=== PATIENT | male | born 1940 | race Caucasian/White ===

== ENCOUNTER 2018-01-18 07:07 | Outpatient (CLI) | payer OTHER | END 2018-01-18 07:12 | disposition home or self-care (01) | LOC: RAD 07:07 | DX: M12.812 Other specific arthropathies, not elsewhere classified, left shoulder (principal); M12.811 Other specific arthropathies, not elsewhere classified, right shoulder; M19.90 Unspecified osteoarthritis, unspecified site ==

== ENCOUNTER 2018-01-18 07:15 | Outpatient (CLI) | payer OTHER | END 2018-01-18 07:16 | disposition home or self-care (01) | LOC: SONOGRAMA 07:15 | DX: M12.812 Other specific arthropathies, not elsewhere classified, left shoulder (principal); M19.012 Primary osteoarthritis, left shoulder ==

== ENCOUNTER 2018-03-11 10:47 | Outpatient (CLI) | payer OTHER | END 2018-03-11 10:54 | disposition home or self-care (01) | LOC: SONOGRAMA 10:47 → MAMO-SONO 11:15 | DX: M75.101 Unspecified rotator cuff tear or rupture of right shoulder, not specified as traumatic (principal) ==

== ENCOUNTER 2018-11-16 07:49 | Outpatient (CLI) | payer OTHER | END 2018-11-16 07:55 | disposition home or self-care (01) | LOC: RAD 07:49 | DX: R07.1 Chest pain on breathing (principal) ==

== ENCOUNTER 2018-11-16 08:12 | Inpatient (IN) | payer OTHER ==
[~2018-11-16] VITALS: Ht 160 cm; Wt 68.0 kg
[2018-11-28] MEDS ORDERED: TOPROL XL25 MG PO (17:41)
[2018-11-28] MEDS ORDERED: TAMS0.4C PO (17:42)
[2018-11-28] MEDS ORDERED: LOSARTAN POTASS50 MG PO (17:42)
[2018-11-28] MEDS ORDERED: TOPROL XL50 M1 PO (17:42)
[2018-11-28] MEDS ORDERED: SIMVASTATIN40 MG PO (17:43)
[2018-11-30] MEDS ORDERED: DOCUSATE SODIU100 MG PO (10:14)
[2018-11-30] MEDS ORDERED: GABAPENTIN800 MG PO (10:14)
[2018-11-30] MEDS ORDERED: AMOX-CLAV 875-1 EACH PO (10:15)
[2018-11-30] MEDS ORDERED: CLONAZEPAM0.5 MG PO (10:16)
[2018-11-30] MEDS ORDERED: PERCOCET 5-3251 EACH PO (10:16)
== END 2018-11-30 17:21 | disposition home or self-care (01) | DRG 454 ==
LOC: SURG 11-29 06:00 → O/R 11-29 06:00 → SURG 11-29 11:52 → SURH 11-29 14:45 → SURG 11-29 20:08
PROVIDERS: ADMIT Orthopaedic Surgery Orthopaedic Surgery of the Spine
PROC: 0RG2071 Fusion of 2 or more Cervical Vertebral Joints with Autologous Tissue Substitute, Posterior Approach, Posterior Column, Open Approach (ICD-10-PCS; 2018-11-29)
PROC: 0RT30ZZ Resection of Cervical Vertebral Disc, Open Approach (ICD-10-PCS; 2018-11-29)
PROC: 07DS3ZZ Extraction of Vertebral Bone Marrow, Percutaneous Approach (ICD-10-PCS; 2018-11-29)
PROC: 0RG20A0 Fusion of 2 or more Cervical Vertebral Joints with Interbody Fusion Device, Anterior Approach, Anterior Column, Open Approach (ICD-10-PCS; principal; 2018-11-29 20:00)
DX: M47.12 Other spondylosis with myelopathy, cervical region (principal); M50.021 Cervical disc disorder at C4-C5 level with myelopathy; I10 Essential (primary) hypertension

== ENCOUNTER 2019-01-20 09:19 | Outpatient (CLI) | payer OTHER ==
[~2019-01-20 09:19] MED LIST: AMOX-CLAV 875-1 EACH PO; CLONAZEPAM0.5 MG PO; DOCUSATE SODIU100 MG PO; GABAPENTIN800 MG PO; LOSARTAN POTASS50 MG PO; PERCOCET 5-3251 EACH PO; SIMVASTATIN40 MG PO; TAMS0.4C PO; TOPROL XL25 MG PO; TOPROL XL50 M1 PO
== END 2019-01-20 09:23 | disposition home or self-care (01) ==
LOC: RAD 09:19
DX: M50.00 Cervical disc disorder with myelopathy, unspecified cervical region (principal); Z98.1 Arthrodesis status

== ENCOUNTER 2019-05-19 08:24 | Outpatient (CLI) | payer OTHER | END 2019-05-19 08:28 | disposition home or self-care (01) | LOC: RAD 08:24 | DX: M50.00 Cervical disc disorder with myelopathy, unspecified cervical region (principal); Z98.1 Arthrodesis status ==

== ENCOUNTER → 2021-08-26 07:58 | Outpatient (CLI) | payer OTHER | END | disposition home or self-care (01) | LOC: LAB 07:58 | PROVIDERS: ATTEND Urology | DX: N30.00 Acute cystitis without hematuria (principal); R31.29 Other microscopic hematuria ==

== ENCOUNTER 2021-09-04 07:41 | Outpatient (CLI) | payer OTHER | END 2021-09-04 07:44 | disposition home or self-care (01) | LOC: EKG 07:41 → LAB 07:41 | PROVIDERS: ATTEND Urology | DX: I11.0 Hypertensive heart disease with heart failure (principal); R94.31 Abnormal electrocardiogram [ECG] [EKG] ==

== ENCOUNTER 2021-09-12 12:35 | Outpatient (CLI) | payer OTHER | END 2021-09-12 12:42 | disposition home or self-care (01) | LOC: RAD 12:35 | PROVIDERS: ATTEND Urology | DX: I11.9 Hypertensive heart disease without heart failure (principal) ==

== ENCOUNTER 2021-09-17 09:47 | Day surgery (SDC) | payer OTHER | END 2021-09-17 17:55 | disposition home or self-care (01) | LOC: CIR.AMB 09:47 → SURH 11:36 → EDSTATUS 12:11 → CIR.AMB 12:11 | PROVIDERS: ATTEND Urology | DX: C67.2 Malignant neoplasm of lateral wall of bladder (principal); C67.3 Malignant neoplasm of anterior wall of bladder; C67.4 Malignant neoplasm of posterior wall of bladder; C67.5 Malignant neoplasm of bladder neck; Z20.822 Contact with and (suspected) exposure to COVID-19 ==

== ENCOUNTER → 2021-09-24 09:21 | Outpatient (CLI) | payer OTHER | END | disposition home or self-care (01) | LOC: LAB 09:21 | PROVIDERS: ATTEND Urology | DX: N30.00 Acute cystitis without hematuria (principal); D64.89 Other specified anemias ==

== ENCOUNTER 2021-11-27 07:44 | Outpatient (CLI) | payer OTHER | END 2021-11-27 07:45 | disposition home or self-care (01) | LOC: LAB 07:44 | PROVIDERS: ATTEND Urology | DX: N30.00 Acute cystitis without hematuria (principal) ==

== ENCOUNTER 2022-03-21 07:34 | Outpatient (CLI) | payer OTHER | END 2022-03-21 07:35 | disposition home or self-care (01) | LOC: LAB 07:34 | PROVIDERS: ATTEND Urology | DX: N30.00 Acute cystitis without hematuria (principal) ==

== ENCOUNTER 2022-09-29 07:09 | Outpatient (CLI) | payer OTHER | END 2022-09-29 07:11 | disposition home or self-care (01) | LOC: LAB 07:09 | PROVIDERS: ATTEND Urology | DX: N30.00 Acute cystitis without hematuria (principal) ==

== ENCOUNTER → 2022-10-19 07:24 | Outpatient (CLI) | payer OTHER | END | disposition home or self-care (01) | LOC: LAB 07:24 | PROVIDERS: ATTEND Urology | DX: R97.21 Rising PSA following treatment for malignant neoplasm of prostate (principal) ==

== ENCOUNTER 2022-11-16 08:32 | Outpatient (CLI) | payer OTHER | END 2022-11-16 08:33 | disposition home or self-care (01) | LOC: LAB 08:32 | PROVIDERS: ATTEND Urology | DX: C67.8 Malignant neoplasm of overlapping sites of bladder (principal); I11.9 Hypertensive heart disease without heart failure ==

== ENCOUNTER 2022-11-17 11:10 | Outpatient (CLI) | payer OTHER | END 2022-11-17 11:15 | disposition home or self-care (01) | LOC: RAD 11:10 | PROVIDERS: ATTEND Urology | DX: I11.9 Hypertensive heart disease without heart failure (principal) ==

== ENCOUNTER 2022-11-25 05:30 | Day surgery (SDC) | payer OTHER | END 2022-11-25 12:10 | disposition home or self-care (01) | LOC: CIR.AMB 05:30 | PROVIDERS: ATTEND Urology | DX: C67.9 Malignant neoplasm of bladder, unspecified (principal); C79.19 Secondary malignant neoplasm of other urinary organs; N41.9 Inflammatory disease of prostate, unspecified; N40.0 Benign prostatic hyperplasia without lower urinary tract symptoms; I10 Essential (primary) hypertension; F17.210 Nicotine dependence, cigarettes, uncomplicated; Z20.822 Contact with and (suspected) exposure to COVID-19 ==

== ENCOUNTER 2022-12-28 08:19 | Outpatient (CLI) | payer OTHER | END 2022-12-28 15:01 | disposition home or self-care (01) | LOC: LAB 08:19 | PROVIDERS: ATTEND Urology | DX: N30.00 Acute cystitis without hematuria (principal) ==

== ENCOUNTER → 2023-01-18 08:32 | Outpatient (CLI) | payer OTHER | END | disposition home or self-care (01) | LOC: LAB 08:32 | PROVIDERS: ATTEND Urology | DX: N30.00 Acute cystitis without hematuria (principal) ==

== ENCOUNTER 2023-03-09 08:40 | Outpatient (CLI) | payer OTHER | END 2023-03-09 08:42 | disposition home or self-care (01) | LOC: LAB 08:40 | PROVIDERS: ATTEND Urology | DX: N30.10 Interstitial cystitis (chronic) without hematuria (principal) ==

== ENCOUNTER 2023-03-17 08:35 | Outpatient (CLI) | payer OTHER | END 2023-03-17 09:07 | disposition home or self-care (01) | LOC: LAB 08:35 | PROVIDERS: ATTEND Urology | DX: Z01.810 Encounter for preprocedural cardiovascular examination (principal); C67.9 Malignant neoplasm of bladder, unspecified; I11.9 Hypertensive heart disease without heart failure ==

== ENCOUNTER 2023-03-31 05:50 | Day surgery (SDC) | payer OTHER ==
[~2023-03-31] VITALS: Ht 157.5 cm; Wt 65.8 kg
[~2023-03-31 05:50] MED LIST changes: +FINASTERIDE5 MG PO; +[UNRECOGNIZED DRUG - OTHER] PO
== END 2023-03-31 15:30 | disposition home or self-care (01) ==
LOC: CIR.AMB 05:50
PROVIDERS: ATTEND Urology
DX: C67.9 Malignant neoplasm of bladder, unspecified (principal); N32.89 Other specified disorders of bladder; N40.1 Benign prostatic hyperplasia with lower urinary tract symptoms; Z20.822 Contact with and (suspected) exposure to COVID-19; I10 Essential (primary) hypertension; E78.5 Hyperlipidemia, unspecified

== ENCOUNTER 2023-04-12 19:02 | Inpatient (IN) | payer OTHER ==
[~2023-04-12] VITALS: Ht 162.6 cm; Wt 66.2 kg
[~2023-04-12 19:02] MED LIST changes: +ADALAT CC60 MG PO; +ATORVASTATIN CA40 MG PO; +COZAAR50 MG PO; +METROPOLOL PO
== END 2023-04-16 11:12 | disposition home or self-care (01) | DRG 670 ==
LOC: ER 19:02 → SURH 04-13 08:18
PROVIDERS: ADMIT Urology; ATTEND Urology
PROC: 0TCB8ZZ Extirpation of Matter from Bladder, Via Natural or Artificial Opening Endoscopic (ICD-10-PCS; 2023-04-14)
PROC: 0VB08ZX Excision of Prostate, Via Natural or Artificial Opening Endoscopic, Diagnostic (ICD-10-PCS; 2023-04-14)
PROC: 0TBB8ZX Excision of Bladder, Via Natural or Artificial Opening Endoscopic, Diagnostic (ICD-10-PCS; principal; 2023-04-14 11:00)
DX: N30.01 Acute cystitis with hematuria (principal); D30.3 Benign neoplasm of bladder; D64.89 Other specified anemias; N40.1 Benign prostatic hyperplasia with lower urinary tract symptoms; R35.0 Frequency of micturition; I12.9 Hypertensive chronic kidney disease with stage 1 through stage 4 chronic kidney disease, or unspecified chronic kidney disease; N18.30 Chronic kidney disease, stage 3 unspecified; Z85.46 Personal history of malignant neoplasm of prostate; Z85.51 Personal history of malignant neoplasm of bladder

== ENCOUNTER 2023-04-27 09:44 | Outpatient (CLI) | payer OTHER | END 2023-04-27 09:49 | disposition home or self-care (01) | LOC: LAB 09:44 | PROVIDERS: ATTEND Specialist | DX: D62 Acute posthemorrhagic anemia (principal); N39.0 Urinary tract infection, site not specified ==

== ENCOUNTER 2023-05-05 08:36 | Outpatient (CLI) | payer OTHER | END 2023-05-05 08:39 | disposition home or self-care (01) | LOC: LAB 08:36 | PROVIDERS: ATTEND Urology | DX: N39.0 Urinary tract infection, site not specified (principal) ==

== ENCOUNTER 2023-08-31 09:25 | Outpatient (CLI) | payer OTHER | END 2023-08-31 13:25 | disposition home or self-care (01) | LOC: LAB 09:25 | PROVIDERS: ATTEND Urology | DX: N39.0 Urinary tract infection, site not specified (principal) ==

== ENCOUNTER 2023-11-17 08:25 | Outpatient (CLI) | payer OTHER | END 2023-11-17 08:28 | disposition home or self-care (01) | LOC: TOM 08:25 | PROVIDERS: ATTEND Urology | DX: C67.9 Malignant neoplasm of bladder, unspecified (principal) ==

== ENCOUNTER → 2023-11-17 09:31 | Outpatient (CLI) | payer OTHER ==
[2023-11-17 10:19] LABS: URINE APPEARANCE Clear; URINE BILIRRUBIN Negative (NEGATIVE); URINE BLOOD Negative; URINE COLOR Yellow; URINE GLUCOSE Negative (NEGATIVE); URINE LEUKOCYTE Negative; URINE NITRATE Negative; URINE PROTEIN Trace (NEGATIVE); URINE UROBILINOGEN 0.2 E.U./dl
[2023-11-17 10:23] LABS: URINE BACTERIA 8.8 uL (0.0-1933); URINE EPITHELIAL CELLS 4.1 uL (0.0-38.8); URINE RBC 8.3 uL (0.0-20.8); URINE WBC 15.6 uL (0.0-23.2)
== END | disposition home or self-care (01) ==
LOC: LAB 09:31
PROVIDERS: ATTEND Urology
DX: N39.0 Urinary tract infection, site not specified (principal)

== ENCOUNTER → 2024-06-29 07:05 | Outpatient (CLI) | payer OTHER | END | disposition home or self-care (01) | LOC: LAB 07:05 | PROVIDERS: ATTEND Urology | DX: N39.0 Urinary tract infection, site not specified (principal) ==

== ENCOUNTER → 2024-09-06 07:55 | Outpatient (CLI) | payer OTHER | END | disposition home or self-care (01) | LOC: LAB 07:55 | PROVIDERS: ATTEND Urology | DX: N39.0 Urinary tract infection, site not specified (principal) ==

== ENCOUNTER 2025-04-06 06:12 | Day surgery (SDC) | payer OTHER ==
[2025-04-02 12:43] LABS: BASO % 0.7 % (0.1-1.2); EOS # 0.28 (0.04-0.54); HEMATOCRIT 36.7 % (40.1-51.0); HEMOGLOBIN 12.7 g/dL (13.7-17.5); LYMPH # 1.23 (1.18-3.74); MEAN CORPUSCULAR HEMOGLOBIN 32.9 pg (25.6-32.2); MONO # 0.37 (0.24-0.82); MONO % 6.6 % (4.7-12.5); NEUT # 3.64 (1.56-6.13); NEUT % 65.3 % (34.0-71.1); PLATELET COUNT 187 K/uL (163-369); RED BLOOD COUNT 3.86 M/uL (4.63-6.08); RED CELL DISTRIBUTION WIDTH 12.4 % (11.6-14.4)
[2025-04-02 13:01] LABS: COVID-19 AG NEGATIVE (NEGATIVE)
[2025-04-02 13:03] LABS: PARTIAL THROMBOPLASTIN TIME 27.1 SECONDS (22.0-34.0); PROTHROMBIN TIME 10.9 SECONDS (9.0-11.5)
[2025-04-02 13:22] LABS: ALBUMIN 3.9 gm/dL (3.4-5.0); BILIRUBIN TOTAL 0.7 mg/dL (0.3-1.2); CALCIUM 8.6 mg/dL (8.5-10.1); CREATININE SERUM 2.07 mg/dL (0.70-1.30); GFR 30.74; POTASSIUM 4.13 mEq/L (3.5-5.1); TOTAL PROTEIN 6.9 gm/dL (6.4-8.2)
[2025-04-06] MEDS ORDERED: GENTAMICIN SULFATE 40 MG/ML VIAL ONE (12:09)
[2025-04-06] MEDS ORDERED: PHENAZOPYRIDINE HCL 100 MG TABLET PO ONE ×2 (14:45→15:30)
== END 2025-04-06 17:50 | disposition home or self-care (01) ==
LOC: CIR.AMB 06:12
PROVIDERS: ATTEND Urology
DX: C67.9 Malignant neoplasm of bladder, unspecified (principal)

== ENCOUNTER 2025-04-12 08:59 | Outpatient (CLI) | payer OTHER ==
[2025-04-12 10:01] LABS: CREATININE SERUM 2.44 mg/dL (0.70-1.30)
== END 2025-04-12 09:00 | disposition home or self-care (01) ==
LOC: LAB 08:59
PROVIDERS: ATTEND Urology
DX: C67.9 Malignant neoplasm of bladder, unspecified (principal)

== ENCOUNTER 2025-04-24 07:53 | Outpatient (CLI) | payer OTHER | END 2025-04-24 07:56 | disposition home or self-care (01) | LOC: MRI 07:53 | PROVIDERS: ATTEND Urology | DX: C67.9 Malignant neoplasm of bladder, unspecified (principal); R31.1 Benign essential microscopic hematuria | CPT/HCPCS: 72197; 74183; Q9965 ==